=== PATIENT | female | born 1995 | race Caucasian/White ===

== ENCOUNTER 2017-12-01 12:01 | Emergency (ER) | payer BC, MEDICAID ==
[~2017-12-01] VITALS: Ht 175.3 cm; Wt 81.8 kg
[2017-12-01 12:05] VITALS: BP 137/78; Ht 175.3 cm; Wt 81.8 kg
[2017-12-01] MEDS ORDERED: CELEXA20 MG PO (12:09)
[2017-12-01 12:29] LABS: BASOPHILS 0.3 % (0-2); EOSINOPHILS 9.3 % (0-7); HEMATOCRIT 43.5 % (36.0-48.0); HEMOGLOBIN 14.5 g/dL (12-16); IMMATURE GRANULOCYTES 0.1 % (0-5); LYMPHOCYTES 30.5 % (15-50); MCH 31.7 pg (26.0-34.0); MCHC 33.3 g/dL (31.0-37.0); MEAN PLATELET VOLUME 10.4 fL (7.4-10.4); MONOCYTES 10.1 % (2-11); NEUTROPHILS 49.7 % (40-80); PLATELET COUNT 215 10x3/uL (130-400); RBC 4.58 10x6/uL (4.00-5.40); RDW 12.3 % (11.5-14.5); WBC 10.3 10x3/uL (4.8-10.8)
[2017-12-01 12:43] LABS: ALBUMIN 3.8 g/dL (3.4-5.0); ALKALINE PHOSPHATASE 138 U/L (46-116); ALT (SGPT) 33 U/L (10-68); APPEARANCE CLEAR (CLEAR); BILIRUBIN NEGATIVE (NEGATIVE); CALC OSMOLALITY 277 mosm/kg (275-300); CALCIUM 8.8 mg/dL (8.5-10.1); CHLORIDE - SERUM 105 mmol/L (98-107); COLOR YELLOW (YELLOW); CREATININE - SERUM 0.9 mg/dL (0.6-1.3); GLUCOSE 86 mg/dL (74-106); GLUCOSE NEGATIVE (NEGATIVE); KETONE NEGATIVE (NEGATIVE); NITRITE NEGATIVE (NEGATIVE); POTASSIUM - SERUM 4.3 mmol/L (3.5-5.1); PROTEIN NEGATIVE (NEGATIVE); PROTEIN - SERUM 7.7 g/dL (6.4-8.2); SODIUM 139 mmol/L (136-145); UREA NITROGEN 16 mg/dL (7-18); UROBILINOGEN NORMAL (NORMAL); eGFR NON AFRICAN AMERICAN 82 mL/min (90-120)
[2017-12-01 12:50] LABS: BACTERIA FEW /hpf (NONE SEEN); EPITHELIAL CELLS 0-5 /hpf (0-5); MUCUS >1+ /lpf (NONE SEEN); WHITE CELLS - URINE 0-5 /hpf (0-5)
[2017-12-01 12:51] LABS: HCG SERUM NEGATIVE (NEGATIVE); HYALINE CAST RARE /lpf (NONE SEEN)
== END 2017-12-01 14:33 | disposition home or self-care (01) ==
LOC: D.ER 12:01
PROVIDERS: Family Medicine
DX: O72.1 Other immediate postpartum hemorrhage (principal)